=== PATIENT | male | born 1995 | race Two or more races ===

== ENCOUNTER 2024-01-27 21:41 | Emergency (ER) | payer BC | END 2024-01-27 23:22 | disposition home or self-care (01) | LOC: CSHERS 21:41 | DX: M25.511 Pain in right shoulder (principal); R42 Dizziness and giddiness; R11.0 Nausea; F17.210 Nicotine dependence, cigarettes, uncomplicated; Z55.6 Problems related to health literacy | CPT/HCPCS: 36416; 99284 ==

== ENCOUNTER 2024-05-04 02:40 | Emergency (ER) | payer BC ==
[2024-05-04] MEDS ORDERED: Ondansetron ODT 4 MG TAB ONE (03:13)
[2024-05-04] MEDS ORDERED: Dicyclomine 20 MG/2 ML VIAL ONE (03:13)
[2024-05-04] MEDS ORDERED: Dicyclomine 20 MG TAB ONE (03:17)
[2024-05-04 03:32] LABS: #Basophils 0.11 10x3/uL (0.0-0.2); #Eosinphils 0.27 10x3/uL (0.0-0.5); #Monocytes 0.68 10x3/uL (0.0-1.1); #Neutrophils 3.84 10x3/uL (1.5-8.4); %Basophils 1.5 % (0.0-2.0); %Eosinophils 3.6 % (0.0-6.0); %Lymphocytes 34.9 % (18.0-47.0); %Neutrophils 50.7 % (40.0-75.0); Hematocrit 44.9 % (38.8-50.0); Hemoglobin 14.8 g/dL (13.5-17.5); Mean Corpuscular Hemoglobin 27.3 pg (27.0-33.0); Mean Corpuscular Volume 82.7 fL (81.2-95.1); Mean Platelet Volume 12.5 fL (7.4-10.4); Platelet Count 240 10x3/uL (150-450); RBC Distribution Width 14.8 % (11.5-14.5); Red Blood Cell (RBC) Count 5.43 10x6/uL (4.32-5.72); White Blood Cell (WBC) Count 7.6 10x3/uL (3.5-10.5)
[2024-05-04 03:45] LABS: ALT (SGPT) 20 U/L (8-55); AST (SGOT) 24 U/L (5-34); Albumin 4.1 g/dL (3.5-5.0); Alkaline Phosphatase 94 U/L (40-110); Anion Gap 13 mmol/L (10-20); BUN (Urea Nitrogen) 11 mg/dL (8.9-20.6); Bilirubin, Total 0.4 mg/dL (0.2-1.2); Calc. Creatinine Clearance 0 mL/min (70-130); Calcium 9.1 mg/dL (7.8-10.44); Carbon Dioxide 24 mmol/L (22-29); Chloride 105 mmol/L (98-107); Estimated GFR 101; Globulin 3.2 g/dL (2.4-3.5); Glucose 77 mg/dL (70-105); Lipase 38 U/L (8-78); Potassium 3.7 mmol/L (3.5-5.1); Protein, Total 7.3 g/dL (6.0-8.3); Sodium 138 mmol/L (136-145)
== END 2024-05-04 05:12 | disposition home or self-care (01) ==
LOC: CSHERS 02:40
DX: R10.11 Right upper quadrant pain (principal); R10.811 Right upper quadrant abdominal tenderness; R11.2 Nausea with vomiting, unspecified; F17.290 Nicotine dependence, other tobacco product, uncomplicated; F17.210 Nicotine dependence, cigarettes, uncomplicated
CPT/HCPCS: 76705; 80053; 83690; 85025; Q0162

== ENCOUNTER 2024-06-14 23:25 | Emergency (ER) | payer BC | END 2024-06-14 23:52 | disposition home or self-care (01) | LOC: CSHERS 23:25 | DX: L03.115 Cellulitis of right lower limb (principal); B35.3 Tinea pedis; F17.210 Nicotine dependence, cigarettes, uncomplicated; F17.290 Nicotine dependence, other tobacco product, uncomplicated | CPT/HCPCS: 99283 ==